=== PATIENT | male | born 1995 | race Caucasian/White ===

== ENCOUNTER 2021-09-18 23:39 | Inpatient (IN) ==
[2021-09-19 00:29] LABS: Bilirubin,Urine Negative (Negative); Blood,Urine Negative (Negative); Clarity,Urine Clear (Clear); Color,Urine Light-Yellow (Yellow); Glucose,Urine (UA) Normal (Normal); Ketones,Urine Negative (Negative); Leukocyte Esterase,Urine Negative (Negative); Nitrite,Urine Negative (Negative); Protein,Urine Trace mg/dL (Neg-Trace); Specific Gravity,Urine 1.015 (1.010-1.025); Urobilinogen,Urine Normal (Normal)
[2021-09-19 00:30] LABS: Basophils # 0.1 K/mcL (0.0-0.2); Basophils % 1.1 %; Eosinophils % 0.2 %; Hematocrit 48.1 % (37.5-50.1); Hemoglobin 16.4 g/dL (12.9-16.9); Immature Granulocytes % 0.5 % (0-4); Lymphocytes % 47.3 %; Mean Corpuscular HGB Conc 34.1 g/dL (31.6-35.5); Mean Corpuscular Hemoglobin 29.7 pg (28.0-33.3); Mean Platelet Volume 8.8 fL (9.4-12.4); Monocytes # 0.7 K/mcL (0.0-1.3); Monocytes % 8.1 %; Neutrophils # 3.6 K/mcL (1.6-8.9); Platelet Count 283 K/mcL (140-400); Red Blood Count 5.53 M/mcL (4.19-5.50); Red Cell Distribution Width 12.6 % (11.5-14.5); Segmented Neutrophils % 42.8 %; White Blood Count 8.5 K/mcL (4.3-11.1)
[2021-09-19] MEDS ORDERED: *HR* LORazepam 1 MG TABLET PO ONE ×2 (00:30→09:58)
[2021-09-19 00:35] LABS: Estimated Average Glucose 105 mg/dl; Hemoglobin A1C 5.3 %
[2021-09-19 00:39] LABS: Amphetamine Screen,Urine Negative ng/mL (Cutoff=1000); Barbiturate Screen,Urine Negative ng/mL (Cutoff=200); Benzodiazepines Screen,Urine Negative ng/mL (Cutoff=200); Cannabinoid Screen,Urine Negative ng/mL (Cutoff = 50); Cocaine Screen,Urine Negative ng/mL (Cutoff= 300); Opiate Screen,Urine Negative ng/mL (Cutoff=300); Phencyclidine Screen,Urine Negative ng/mL (Cutoff=25)
[2021-09-19 00:52] LABS: Acetaminophen < 10 mcg/mL (10-20); Alanine Aminotransferase 23 Units/L (7-52); Albumin 5.2 g/dL (3.5-5.7); Albumin/Globulin Ratio 1.7 (1.1-2.2); Alkaline Phosphatase 69 Units/L (34-104); Aspartate Amino Transferase 26 Units/L (13-39); BUN/Creatinine Ratio 13 (6-26); Bilirubin,Direct 0.1 mg/dL (0.0-0.2); Bilirubin,Indirect 0.4 mg/dL (0.0-1.0); Bilirubin,Total 0.5 mg/dL (0.3-1.0); Blood Urea Nitrogen 13 mg/dL (6-20); Calcium 9.3 mg/dL (8.6-10.3); Carbon Dioxide 20 mEq/L (23-29); Chloride 104 mEq/L (98-107); Chol/HDL Ratio 2.9 (0-4.9); Cholesterol 225 mg/dL (< 200); Ethanol 338 mg/dL (Less than 10); Globulin 3.1 g/dL (2.4-3.5); Glucose 160 mg/dL (70-105); HDL Cholesterol 78 mg/dL (40-59); LDL Cholesterol,Calculated 109 mg/dL (< 100); Osmolality,Calculated 298 (280-300); Salicylate < 2.5 mg/dL (15.0-30.0); Sodium 142 mEq/L (136-145); Total Protein 8.3 g/dL (6.4-8.9); Triglycerides 188 mg/dL (< 150); eGFR For African Americans > 60 (> 60); eGFR For Non-African Americans > 60 (> 60)
[2021-09-19 01:05] LABS: Thyroid Stimulating Hormone 0.726 mcIU/mL (0.340-5.600)
[2021-09-19 13:49] LABS: Influenza A PCR Negative (Negative); Influenza B PCR Negative (Negative); Resp. Syncytial Virus PCR Negative (Negative)
[2021-09-19 13:52] LABS: SARS-CoV-2 by PCR (In House) Positive (Negative)
[2021-09-19] MEDS ORDERED: Haloperidol Lactate 5 MG/ML VIAL IM PRN (15:11)
[2021-09-19] MEDS ORDERED: *HR* LORazepam 1 MG TABLET PO PRN (15:11)
[2021-09-19] MEDS ORDERED: Ibuprofen 400 MG TABLET PO PRN (15:11)
[2021-09-19] MEDS ORDERED: haloperidoL 5 MG TABLET PO PRN (15:11)
[2021-09-19] MEDS ORDERED: *HR* LORazepam 2 MG/ML VIAL IM PRN (15:11)
[2021-09-19] MEDS ORDERED: MOM Conc 10 ML UD.LIQ PO PRN (16:34)
[2021-09-19] MEDS ORDERED: Mag Hydrox/Al Hydrox/Simeth 30 ML UDC PO PRN (16:34)
[2021-09-19] MEDS: hydrOXYzine pamoate 25 MG CAPSULE PO PRN (20:49)
[2021-09-19] MEDS: traZODone 50 MG TABLET PO PRN (20:50)
[2021-09-20] MEDS: hydrOXYzine pamoate 25 MG CAPSULE PO PRN ×3 (08:37→21:58)
[2021-09-20] MEDS: traZODone 50 MG TABLET PO PRN (21:56)
[2021-09-21] MEDS ORDERED: QUEtiapine Fumarate 25 MG TABLET PO SCH (21:00)
[2021-09-21] MEDS: hydrOXYzine pamoate 25 MG CAPSULE PO PRN (21:45)
[2021-09-22] MEDS: hydrOXYzine pamoate 25 MG CAPSULE PO PRN ×3 (04:36→21:57)
[2021-09-22] MEDS: BuPROPion XL (24 HR) 150 MG TABLET PO SCH (09:37)
[2021-09-22] MEDS ORDERED: QUEtiapine Fumarate 25 MG TABLET PO SCH (21:00)
[2021-09-23 08:34] VITALS: BP 127/88; PULSE 101; TEMP 98.2; O2SAT 98
[2021-09-23] MEDS: BuPROPion XL (24 HR) 150 MG TABLET PO SCH (08:34)
[2021-09-23] MEDS: hydrOXYzine pamoate 25 MG CAPSULE PO PRN (12:55)
== END 2021-09-23 16:35 | disposition home or self-care (01) | DRG 885 ==
LOC: EMEROOARM 23:39 → 1ANU 23:39 → SUATTDRO 09-19 16:57
PROVIDERS: ADMIT Psychiatry & Neurology Psychiatry; ATTEND Psychiatry & Neurology Psychiatry